=== PATIENT | female | born 1980 | race African-American/Black ===

== ENCOUNTER 2017-04-20 02:23 | Emergency (ER) | payer OTHER ==
[~2017-04-20] VITALS: Ht 180.3 cm; Wt 109.1 kg
[2017-04-20 02:41] LABS: POINT-OF-CARE METER ID UU13113702
[2017-04-20 02:43] VITALS: BP 147/75
== END 2017-04-20 02:47 ==
LOC: EME 02:23
PROVIDERS: Emergency Medicine
DX: T40.991A Poisoning by other psychodysleptics [hallucinogens], accidental (unintentional), initial encounter (principal); R42 Dizziness and giddiness; H55.00 Unspecified nystagmus; Y92.149 Unspecified place in prison as the place of occurrence of the external cause; F16.10 Hallucinogen abuse, uncomplicated; Z72.0 Tobacco use
CPT/HCPCS: 82948; 99281; 99283